=== PATIENT | female | born 1970 | race Caucasian/White ===

== ENCOUNTER 2017-04-25 02:26 | Emergency (ER) | payer SELFPAY ==
[~2017-04-25] VITALS: Ht 154.9 cm; Wt 48.2 kg
[2017-04-25] MEDS ORDERED: ADDERALL30 MG PO (02:38)
[2017-04-25] MEDS ORDERED: ALBUTEROL0.5 % IN (02:40)
[2017-04-25] MEDS ORDERED: DOXYCYCL HYC100 MG PO (02:59)
[2017-04-25 03:04] VITALS: BP 113/91
== END 2017-04-25 03:12 | disposition home or self-care (01) | DRG 153 ==
LOC: ED 02:26
DX: J01.90 Acute sinusitis, unspecified (principal); F41.9 Anxiety disorder, unspecified; F90.9 Attention-deficit hyperactivity disorder, unspecified type